=== PATIENT | male | born 1990 | race Two or more races ===

== ENCOUNTER 2018-12-15 22:48 | Emergency (ER) | payer SELFPAY ==
[~2018-12-15] VITALS: Ht 167.6 cm; Wt 88.0 kg
[2018-12-16 00:54] VITALS: BP 132/80
== END 2018-12-16 03:33 | disposition left against medical advice (07) ==
LOC: ER 22:48
DX: Z53.21 Procedure and treatment not carried out due to patient leaving prior to being seen by health care provider (principal)